=== PATIENT | female | born 1975 | race Caucasian/White ===

== ENCOUNTER 2023-07-05 11:24 | Outpatient (REF) | payer OTHER, SELFPAY ==
--- NOTE | ~2023-07-05 | XR_ITS ---
EXAMINATION: XR CERVICAL SPINE CLINICAL INFORMATION: Acquired absence of other organs. COMPARISON: Portions of the MRI cervical spine dated 04/13/2022. TECHNIQUE: AP and lateral (neutral, flexion and extension) views of the cervical spine were obtained. FINDINGS: Vertebral body heights are normal. At C5-C6, there is moderately severe disc space narrowing, a 2 mm retrolisthesis and mild anterior spondylosis. There has been a prior anterior fusion extending from C6 through T1, with intact C7 corpectomy cage. No hardware failure or loosening is seen. There is no instability with flexion or extension. The posterior elements are intact. The dens is intact. No prevertebral soft tissue swelling or gas is seen. XR/XR cervical spine 4V IMPRESSION: 1. There is intact orthopedic hardware related to a prior C6 through T1 anterior fusion and C7 corpectomy. 2. There is no instability with flexion or extension. 3. There is moderately severe degenerative disc disease at C5-C6.
== END 2023-07-05 11:25 | disposition home or self-care (01) ==
LOC: HO.HOSX 11:24
PROVIDERS: PCP Internal Medicine; Visit Provider Neurological Surgery
DX: Z96.698 Presence of other orthopedic joint implants (principal); Z90.89 Acquired absence of other organs
CPT/HCPCS: 72050

== ENCOUNTER 2023-07-05 11:24 | Outpatient (AMB) | payer OTHER, SELFPAY ==
--- NOTE | 2023-07-05 11:51 | A.OFFVIS_ITS ---
Intake Intake Visit Reasons: neck pain Steel Detailer Required: No Assessment & Plan Assessment & Plan (1) History of cervical corpectomy: Code(s): Z90.89 - Acquired absence of other organs Plan: Dear colleague, on 07/05/2023, I saw for final follow-up Maddie Jerez, whom underwent a C7 corpectomy in July 2022 for spinal cord compression. She recovered well. She denies neck pain or neurological deficits. Today's x-ray shows a stable construct. I discharged her from further follow-up. Thank you for letting me take care of your patient. Severino Alonso MD, PhD Spine Fellowship Trained Neurosurgeon Director, [facility] Orders: Orders XR cervical spine 4V Today Z90.89 - Acquired absence of other organs Coding Level of Care Code Est Pt Level 2 (46094) Diagnoses History of cervical corpectomy Z90.89
== END 2023-07-05 12:25 | disposition home or self-care (01) ==
PROVIDERS: PCP Internal Medicine; Visit Provider Neurological Surgery
DX: Z90.89 Acquired absence of other organs (principal)
CPT/HCPCS: 99212

== ENCOUNTER 2024-09-13 08:45 | Outpatient (AMB) | payer OTHER, SELFPAY ==
--- NOTE | 2024-09-13 08:47 | A.OFFVIS_ITS ---
Vital Signs 09/13/24 08:49 Height 5 ft 5 in Weight 132 lb 11.492 oz BMI 22.1 BP 119/72 Blood Pressure Location Rt brachial Position Sitting Pulse 73 Intake Visit Reasons: Colonoscopy Screening Intake Note: Maddie presents as a new patient for colonoscopy screening. CC: Patient denies having any GI symptoms or concerns today. She has family history of stomach cancer. Supervisor Braiding Required: Yes Supervisor Braiding Language: Turkish Supervisor Braiding Name: daughter Accompanied by: Daughter Allergies No Known Drug Allergies Allergy (Unknown, Verified 09/13/24 08:54) none HPI HPI Colonoscopy Screening: Details: 49-year-old female here for preprocedural meeting to discuss a screening colonoscopy. She is referred by Glen L[facility]y of [facility]. PMX Asthma Allergic rhinitis Latent TB - s/p INH therapy Cervical degenerative disc disease * SURGICAL HISTORY Anterior cervical fusion C6-T1 Left breast biopsy Tubal ligation * ALLERGIES: NKDA * [employer]: None in our system no current labs since my PCP TODAY'S VISIT Turkish # daughter translates per patient request This is her first colonoscopy. She has GERD and lack of appetite with occasional epigastric pain, No bowel prob lems and no alarm sx but she has a FHX of stomach cancer. She has never had an H pylori test. No prior problems with anesthesia or sedation Her asthma is well controlled and she denies cardiac problems. Her TB is s/p INH tx no other ID problems She has a strong FHX of stomach cancer in mother and many relatives but no known CRC or polyps. [facility] Surgical History History of cervical corpectomy History of fusion of cervical spine H/O left breast biopsy H/O tubal ligation Family History Father Asthma Diabetes Maternal Grandfather Coronary artery disease Stomach cancer Mother Stomach cancer Diabetes Maternal Grandmother Coronary artery disease Family/Other Cancer Social History Alcohol intake: current Comment: 1 cup of wine with dinner on occasion Patient Tobacco Use Status: Never used Tobacco Use of substances other than those prescribed or required for medical reasons: No Review of Systems Const Denies fatigue, Denies fever(s), Denies night sweats, Denies poor appetite and Denies weight loss Eyes Details: glasses Reports requires corrective lenses ENT Reports Normal hearing present, Denies dental pain, Denies dysphagia, Denies hearing loss, Denies mouth pain, Denies odynophagia, Denies throat swelling, Denies tongue swelling and Reports other (Dentition adequate) GI Details: Denies abdominal pain, Denies melena, Denies bloating, Denies hematochezia, Denies constipation, Denies GI cramping, Denies dysphagia, Denies excessive flatus, Denies early satiety, Denies heartburn, Denies diarrhea, Denies nausea, Denies odynophagia, Denies vomiting and Denies hematemesis Skin/Breast Denies pruritus, Denies lesions, Denies rash and Denies jaundice Neuro Reports Normal hearing present and Denies Abnormal speech present Endo Denies fatigue Aller/Immun Denies throat swelling and Denies tongue swelling Physical Exam Vital Signs: Last Vital Signs Pulse 73 09/13/24 08:49 BP 119/72 09/13/24 08:49 BMI result Body Mass Index 22.1 Const General: cooperative, no acute distress, well developed and well groomed Nutritional Appearance: average body habitus and well nourished Orientation/consciousness: oriented to person, oriented to place and oriented to time Limitations: language barrier HEENT Head: Yes normocephalic and Yes atraumatic Eyes General: appearance normal, both eyes and all related structures Pupils: Equal, round and reactive pupils present Neck Neck: Yes normal visual inspection and Yes no lymphadenopathy Thyroid: Thyroid normal Resp Effort & Inspection: normal respiratory effort and able to speak in complete sentences Auscultation: clear to auscultation bilaterally Cardio Rate: regular rate Rhythm: regular rhythm Heart sounds: Normal, physiologic split S2 sound present Peripheral pulses: radial pulses present and posterior tibial pulses present GI Inspection: No distended, No Abdominal panniculus present and Yes striae Palpation (GI): Soft to palpation, nontender, no guarding, not rigid and No hepatosplenomegaly present Percussion: Yes normal to percussion Auscultation: normal bowel sounds Rectal Exam - Female: deferred Skin General skin exam: no rashes or lesions noted, turgor normal, skin not dry, no jaundice, No spider nevi and no striae Rashes: no rashes Nails: normal Neuro General: oriented to person, oriented to place and oriented to time Cranial nerves: Yes Equal, round and reactive pupils present and Yes Normal hearing present Speech: No Abnormal speech present Extrem General: Yes normal to inspection, No clubbing, No cyanosis and No edema Psych Appearance: grossly normal and well kempt Mental Status: mental status grossly normal Speech and movement: Normal speech and movement present Affect: normal affect Attitude: cooperative Thought process: Normal thought process present and not confabulating Thought content: Normal thought content present Insight: Good insight present (Psych) Judgement: Good judgement present (Psych) Assessment & Plan Assessment & Plan (1) Pre-op examination: Code(s): Z01.818 - Encounter for other preprocedural examination Category: Medical (2) Family history of stomach cancer: Comment: mother and brothers Code(s): Z80.0 - Family history of malignant neoplasm of digestive organs Category: Medical (3) Poor appetite: Code(s): R63.0 - Anorexia Category: Medical Plan Turkish # daughter translates per patient request This is her first colonoscopy. She has GERD and lack of appetite with occasional epigastric pain, No bowel problems and no alarm sx but she has a FHX of stomach cancer. She has never had an H pylori test. No prior problems with anesthesia or sedation Her asthma is well controlled and she denies cardiac problems. Her TB is s/p INH tx no other ID problems She has a strong FHX of stomach cancer in mother and many relatives but no known CRC or polyps. Orders: Orders Comprehensive Met. Panel Today R63.0 - Anorexia, Z01.818 - Encounter for other preprocedural examination, Z80.0 - Family history of malignant neoplasm of digestive organs Complete Blood Count Auto Diff Today R63.0 - Anorexia, Z01.818 - Encounter for other preprocedural examination, Z80.0 - Family history of malignant neoplasm of digestive organs EGD/[place] Combo - GI Use Only Today R63.0 - Anorexia, Z01.818 - Encounter for other preprocedural examination, Z80.0 - Family history of malignant neoplasm of digestive organs Medications: New peg 3350-electrolytes 236-22.74-6.74 -5.86 gram (Golytely) until fecal effluent is clear; do not exceed a total volume of 2,000 mL 240 mL PO Q10M 4,000 mL 0RF 1 day Z12.11 - Encounter for screening for malignant neoplasm of colon Coding Level of Care Code New Pt Level 3 (36268) Diagnoses Pre-op examination Z01.818 Family history of stomach cancer Z80.0 Poor appetite R63.0
[2024-09-13 08:49] VITALS: BP 119/72; PULSE 73; BMI 22.1
--- OUTSIDE RECORDS SUMMARY | 2024-09-13 08:53 | XMS_ITS ---
[facility] Address [address] [place] [address] Care Team Providers Care Net Developer Architect Name Role Phone Glen Noel MD Primary Care Provider UnavaDora Finney Unavailable [phone] Black, Liss Unavailable [phone] Allergies No Known Allergies REASON FOR VISIT Open sore - Toe Social History Tobacco Use: Social History Observation Description Date Details (start date - stop date) Never Smoker NA - NA Tobacco Use/Smoking Question Answer Notes Are you a: nonsmoker Additional Findings: Tobacco Non-User Current no n-smoker Alcohol Screen Question Answer Notes Did you have a drink containing alcohol in the p ast year? Yes Points 0 Interpretation Negative Tobacco use other than smoking: Question Answer Notes Are you an other tobacco user? No Problems Problem Type SNOMED Code ICD Code Onset Dates Problem Status W/U Status Risk Notes Problem Ulcer of toe of left foot (disorder) (87111780349 913439) Skin ulcer of toe of left foot, limited to breakdown of skin (L97.521) Active confirmed Problem Ulcer of toe of right foot (disorder) (57228568977 099925) Skin ulcer of toe of right foot, limited to breakdown of skin (L97.511) Active confirmed Vital Signs Height 5 ft 5 in in 11/21/2023 Weight 130 lbs 11/21/2023 BMI 21.63 kg/m2 11/21/2023 Procedures Procedure Date Ordered Date Performed Result Body Sit e 45605- Debride <25 sq cm 11/21/2023 N/A Encounters Encounter Location Date Provider Diagnosis [facility] [address] [address] 11/21/2023 Liss Saldana Skin ulcer of toe of left foot, limited to breakdown of skin L97.521 Assessments Encounter Date Diagnosis (ICD Code) Assessment Notes Treatment Notes Treatment Clinical Notes Section Notes 11/21/2023 Skin ulcer of toe of left foot, limited to breakdown of skin (ICD-10 - L97.521) Nonapplicable Patient Educated with: WOUND CARE INSTRUCTIONS.p df (WOUND CARE INSTRUCTIONS.p df) 11/21/2023 Other Plan Of Treatment Treatment Notes Assessment Notes Skin ulcer of toe of left fo ot, limited to breakdown of skin Patient Educated with: WOUND CARE INSTRUCTIONS.pdf (WOUND CARE INSTRUCTIONS.pdf) Pending Test Test Name Order Date 35550- Debride <25 sq cm 11/21/2023 Next Appt Details Follow Up: prn, Reason: Procedure Notes * Category Sub-Category Detail Notes Debride skin< 25 sq cm Open wound Physician of record performed open wound selective debridement of first 25 sq cm or less, of devitilized necrotic/nonviable soft tissue, fibrin, and exudate extending from the epidermis through the dermis, utilizing sharp dissection with sterile 15 blade, and/or tissue nippers. Sterile antibiotic dressing applied, ANESTHESIA- was accomplished TOPICALLY with Lidocaine Hydrochloride Jelly 2 percent. Hemostasis was achieved through direct pressure. Post debridement measurements: 10 mm x 6 mm x 2 mm. Character of the wound post debridement is stable (58436) Progress Notes * Maddie WARREN HDOB:1974 (48 yo F)Acc No.[id number]:11/21/2023 Progress Notes Patient:?Maddie Warren H Provider:?Liss Saldana DPM :1975???Age:48 Y???Sex:Female D ate:11/21/2023 Address:[address] [place] [address] Pcp:Glen Noel MD Subjective: * Chief Complaints: * ???Open sore - Toe * HPI: ???Skin problems:?Treatments:?Topical abx.? * Medical History:? * Surgical History:?cervic sawyer surendra May 2021 * Hospitalization/Major Diagno stic Procedure:?No Hospitalization History. * Family History:?Mother: joel salter, diabetes, cancer.?Father: alive, arthritis, foot problems.? * Social History:?Tobacco Use:?Tobacco Use/Smoking?Are you a:?nonsmoker ?Additional Findings: Tobacco Non-User?Current non-smoker ?Tobacco use other than smoking?Are you an other tobacco user??No ???Drugs/Alcohol:?Drugs?Have you used drugs other than those for medical reasons in the past 12 months??No ?Alcohol Screen?Did you have a drink containing alcohol in the past year??Yes ?Points?0 ?Interpretation?Negative ???Miscellaneous:?no Caffeine. ?Children: yes, 2. ?Exercise: yes, walking, arm exercise. ?Marital status: . ?Occupation: House keeper. * Medications:?None * Allergies:?N.K.D.A.yes[Aller gies Verified] Objective: * Vitals:?Ht: 5 ft 5 in, Wt: 1 30, BMI:21.63, Shoe size: 8. * Examination: ???Dermatologic: ?ULCER:? LOCATION,TA, Medial, SIZE, 8mm X 4mm X 2mm, BASE, granular, RIM, hyperkeratotic, UNDERMINING, absent, TRACKING, Full thickness breakdown of skin, DRAINAGE, serosanguineous, mild, NECROTIC TISSUE, loosely-adherent, yellow slough, MALODOR, absent, CALOR, absent, ERYTHEMA, absent, PAIN ON PALPATION, present.? Assessment: * Assessment: 1.?Skin ulcer of toe of left foot, limited to breakdown of skin - L97.521 (Primary), Response to treatment, Nonapplicable? Plan: * Treatment: * Procedures:?Debride skin< 25 sq cm:?Open wound?Physician of record performed open wound selective debridement of first 25 sq cm or less, of devitilized necrotic/nonviable soft tissue, fibrin, and exudate extending from the epidermis through the dermis, utilizing sharp dissection with sterile 15 blade, and/or tissue nippers. Sterile antibiotic dressing applied, ANESTHESIA- was accomplished TOPICALLY with Lidocaine Hydrochloride Jelly 2 percent. Hemostasis was achieved through direct pressure. Post debridement measurements: 10 mm x 6 mm x 2 mm. Character of the wound post debridement is stable (70469).? * Procedure Codes:?80027 ACTIV E WOUND CARE/20 CM OR < * Follow Up:?prn * Images: * Sign off status: Completed true * Provider:?Liss Saldana DPM Date:?2023 Generated for Cindy negrete/Stacy/eTransmitting on:?09/13/2024 08:53 AM EDT History and Physical Notes * HPI (History of Present Illness) Category Sub-Category Detail Notes Category Not es Skin problems Treatments: Topical abx Examination Category Sub-Category Detail Notes Category Not es Dermatologic ULCER: LOCATION,TA, Med ial, SIZE, 8mm X 4mm X 2mm, BASE, granular, RIM, hyperkeratotic, UNDERMINING, absent, TRACKING, Full thickness breakdown of skin, DRAINAGE, serosanguineous, mild, NECROTIC TISSUE, loosely-adherent, yellow slough, MALODOR, absent, CALOR, absent, ERYTHEMA, absent, PAIN ON PALPATION, present
--- OUTSIDE RECORDS SUMMARY | 2024-09-13 08:53 | XMS_ITS ---
Author Organization [facility] Address [address] [place] [address] Care Team Providers Care Legal File Clerk Name Role Phone Glen Noel MD Primary Care Provider Dora Carney [phone] REASON FOR VISIT CONTINUOUS PROCESS TANNER ROTARY DRUM PPWK Entered Encounters Encounter Location Date Provider Diagnosis [facility] [address] [place] [address] 09/06/2023 Dora Baeza Plan Of Treatment No Information Progress Notes * Maddie WARREN HDOB:1974 (48 yo F)Acc No.[id number]:09/06/2023 Patient:?Maddie Warren :1975???Age:48 Y???Sex:Female Address:[address] [place] [address], [address] * true * Date:? Generated for Printi ng/Faxing/eTransmitting on:?09/13/2024 08:53 AM EDT
--- OUTSIDE RECORDS SUMMARY | 2024-09-13 08:53 | XMS_ITS ---
[facility] Address [address] [place] [address] Care Team Providers Care Brushing Operator Name Role Phone Glen Noel MD Primary Care Provider UnavaDora Finney Unavailable [phone] Black, Liss Unavailable [phone] Allergies No Known Allergies REASON FOR VISIT Painful Toe(s) Social History Tobacco Use: Social History Observation [...] Problem Status W/U Status Risk Notes Problem Acquired hammer toe of left foot (7728429258244429) Other hammer toe(s) (acquired), left foot (M20.42) Active confirmed Problem Localized, primary osteoarthritis of the ankle and/or foot (370198586) Arthritis of joint of lesser toe, left (M19.072) Active confirmed Vital Signs Height 5 ft 5 in in 11/03/2023 Weight 130 lbs 11/03/2023 BMI 21.63 kg/m2 11/03/2023 Procedures Procedure Date Ordered Date Performed Result Body Sit e 01533-Idudpyue Plate 11/03/2023 N/A Encounters Encounter Location Date [facility] [address] [place] [address] 11/03/2023 Liss Black Pain in left toe(s) M79.675 ; Acquired hallux extensus, left M20.5X2 and Ingrown nail L60.0 Assessments Encounter Date Diagnosis (ICD Code) Assessment Notes Treatment Notes Treatment Clinical Notes Section Notes 11/03/2023 Pain in left toe(s) (ICD-10 - M79.675) 11/03/2023 Acquired hallux extensus, left (ICD-10 - M20.5X2) Acute problem, Uncomplicated (3) 11/03/2023 Ingrown nail (ICD-10 - L60.0) Plan Of Treatment Pending Test Test Name Order Date 74305-Rpixaimh Plate 11/03/2023 Next Appt Details Follow Up: 2 Weeks, Reason: Procedure Notes * Category Sub-Category Detail Notes Nail Avulsion Procedure A fine sterile e levator was placed between the eponychium, nail fold, and nail plate to separate the structures. A sterile nail splitter, and/or sterile 316 blade, was then used to longitudinally section the nail along its entire length through the eponychium to the area under the nail fold. The offending portion of nail was from the nail bed with a rolling action and then removed with a hemostat. No underlying bone was identified. There was minimal bleeding as hemostasis was achieved through the temporary use of either a digital tourniquet or the aforementioned local with epinephrine. A bacitracin sterile dressing was applied. Local wound aftercare instructions were discussed and dispensed. The patient was informed of both conservative and future surgical procedures to prevent recurrence. Tylenol or Motrin was recommended for pain or discomfort (58605) , Pt DEFERS matricectomy Anesthesia 3cc of 1 percent Lid ocaine Plain local anesthesic utilizing aseptic technique Location Medial nail border , TA Progress Notes * Maddie WARREN HDOB:1974 (48 yo F)Acc No.[id number]:11/03/2023 Progress Notes Patient:?Maddie Warren Provider:?Liss Saldana DPM :1975???Age:48 Y???Sex:Female D ate:11/03/2023 Address:[address], [place], [id number] Pcp:Glen Noel MD Subjective: * Chief Complaints: * ???Painful Toe(s) * HPI: ???Toe pain:?Nature:?tenderness.?Location:?Left foot.?Duration:?several weeks.?Course:?worse.?Aggrevated by:?any pressure, shoes.?Treatments:?rest/alter normal daily activity, change in shoes.? * ROS:?General/Constitutional:?Nausea?denies.?Vomiting?denies.?Hunger Thirst?denies.?Loss appetite?denies.?Chills?denies.?Fatigue?denies.?Fever?denies.?Night Sweats?denies.?Unexplained weight loss?denies.?Unexplained weight gain?denies.?HEENTM:?Dentures?denies.?Dizziness?denies.?Glasses/contacts?admits.?Retinopathy?de nies.?Blurred/double vision?denies.?TMJ?denies.?Discharge/drainage?denies.?Implants?denies.?Sore throat?denies.?Dental implants?denies.?Hard of hearing ?denies.?Difficulty chewing/swallowing/speaking?denies.?Nose bleeds?denies.?Sore mouth?denies.?Respiratory:?On Oxygen?denies.?Pneumonia/pleurisy?denies.?Bronchitis?denies.?Emphysema?denies.?C oughing?denies.?Cough blood?denies.?Shortness of breath?denies.?Wheezing?denies.?Cardiovascular:?Pacemaker?denies.?MVP?denies.?WPW?denies.?CHF?denies.?Heart attack?denies.?Septal defect?denies.?Rapid beat?denies.?Chest pain ?denies.?Atrial Fib.?denies.?Murmur/Palpitations?denies.?Gastrointestinal:?Hemorrhoids?denies.?Stomach/Abdominal pain?denies.?Dark blood stool?denies.?Irritable bowel ?denies.?Constipation?denies.?Diarrhea?denies.?Hematology:?Swelling?denies.?Clots?denies.?Varicose Veins?denies.?Bruising?denies.?Bleeding problem?denies.?Genitourinary:?Blood urine?denies.?Frequent/Painfu/urination/bladder control?denies.?Kidney stones?denies.?Infection (UTI)?denies.?Nephropathy?denies.?sex trans dis (STD)?denies.?Prostate?denies.?Musculoskeletal:?Hammertoes?denies.?Bunions?denies.?Back Pain?denies.?Muscle Cramps/ Resting?denies.?Muscle cramps / walking?denies.?Generalized aches and pains?denies.?Weakness?denies.?Integ.:?Lay?denies.?Scars?denies.?Corns/calluses?denies.?Ingrown nails?denies.?Painful nails?denies.?Open Sores?denies.?Rashes?denies.?Neurologic:?Difficulty sleeping?denies.?Brain disorder?denies.?Numbness?denies.?Balance trouble?denies.?Confusion?denies.?Fainting/blackouts?denies.?Tingling?denies.?Tr emors?denies.? * Medical History:? * Surgical History:?cervic sawyer surendra May 2021 * Hospitalization/Major Diagno stic Procedure:?No Hospitalization History. * Family History:?Mother: aliv e, diabetes, cancer.?Father: alive, arthritis, foot problems.? * [...] Objective: * Vitals:?Ht: 5 ft 5 in, Wt:13 0, BMI:21.63, Shoe size: 8, Ht-cm: 165.1 cm, Wt-k.97 kg. * Examination: ???General Examination: ?GENERAL APPEARANCE:?Reveals a pleasant, alert, well nourished, well- developed, well hydrated individual, who demonstrates proper attention to hygiene/body habitus, and is in no acute distress , Pt accompanied by , Female , Daughter , Petroleum Transport Driver/Etl Developer , and/who is physically present in exam room at time of visit.?ORIENTED:?person, place, and time , confused.?Orthopedic: ?MUSCLE STRENGTH:?5/5 all groups in a symmetrical fashion, B/L.?BUNION:?( + ) Hallux extensus b/l , , inflammation present , (+) Pain on palpation with erythema left hallux.?DIGITAL DEFORMITIES:?Digital contracture, PIPJ, 2-5 B/L, incompl-reducible with WB, or to push-up test, no over, nor underlapping.?FOOTWEAR:? shoe gear properties exacerbate patients foot/toe deformity.?Ingrown Nail: ?INSPECTION:?Reveals nail incurvation, pain on palpation, groove hypertrophy , Medial nail border , TA.?Vascular: ?DP PULSES:?3/4, B/L.?PT PULSES:?3/4, B/L.?CAPILLARY FILL TIME:?immediate, all digits, B/L.?SKIN TEMPERTURE GRADIENT OF THE LOWER EXTERMITIES:?normal, warm to cool, proximal to distal, B/L, B/L.?HAIR GROWTH/TEXTURE/ELASTICITY/TURGOR:?normal, B/L.?PIGMENTATION:?normal, B/L.?EDEMA:?absent, B/L.?Neurological: ?SENSORY:?Neurological exam reveals intact sensorium, pain sensation normal, vibration sensation intact, pinprick sensation is normal in the lower extremities, Pt denies, anesthesia, burning, paresthesia, tingling, B/L.?TINEL'S COMPRESSION:?Negative tarsal tunnel, rosy pedis, and medial calcaneal nerves.?Dermatologic: ?SKIN FINDINGS:?Skin exam reveals normal color, texture, elasticity, and turgor. There are no masses, nor excrescences. The interspaces are clear, B/L.? Assessment: * Assessment: 1.?Pain in left toe(s) - M79 .675?2.?Acquired hallux extensus, left - M20.5X2 (Primary), Acute problem, Uncomplicated (3)?3.?Ingrown nail - L60.0? Plan: * Treatment: * Procedures:?Nail Avulsion:?Location?Medial nail border , TA.?Anesthesia?3cc of 1 percent Lidocaine Plain local anesthesic utilizing aseptic technique.?Procedure?A fine sterile elevator was placed between the eponychium, nail fold, and nail plate to separate the structures. A sterile nail splitter, and/or sterile 316 blade, was then used to longitudinally section the nail along its entire length through the eponychium to the area under the nail fold. The offending portion of nail was from the nail bed with a rolling action and then removed with a hemostat. No underlying bone was identified. There was minimal bleeding as hemostasis was achieved through the temporary use of either a digital tourniquet or the aforementioned local with epinephrine. A bacitracin sterile dressing was applied. Local wound aftercare instructions were discussed and dispensed. The patient was informed of both conservative and future surgical procedures to prevent recurrence. Tylenol or Motrin was recommended for pain or discomfort (01683) , Pt DEFERS matricectomy.? * Procedure Codes:?25956 Avuls ion Plate, Modifiers: TA * Preventive Medicine:? ??Counseling:?Discussion:?-03: Office or other outpatient visit for the evaluation and management of a new patient, which required a medically appropriate history and/or examination and LOW level of DECISION MAKING for: 1 STABLE ACUTE UNCOMPLICATED PROBLEM, 2 OR MORE MINOR PROBLEMS, OR 1 STABLE CHRONIC PROBLEM, THAT POSE(S) A LOW RISK FOR MORBIDITY/MORTALITY. The visit on the day of the encounter encompassed interpreting the data and educating the patient as to the nature of their condition, treatment options available according to their individual PMH, meds, allergies, and overall health/living conditions, as well as any potential risks or complications that may occur from a failure to adhere to, and participate in, the recommended course of therapy. The discussion included a complete verbal, and/or written explanation of the examination results, any x-rays taken, the proposed diagnosis, and outline of the treatment plan. A schedule for future care needs was also explained. The patient verbalized an understanding of the instructions at this time and agreed to be an active participant in their treatment. If the patient should think of any questions or concerns after the visit, I have encouraged the patient to call the office.?BioMech.:?I discussed the Pts foot biomechanics with them and how it relates to their problem, The patient and I reviewed the types of shoes they should be wearing; my recommendation includes obtaining a shoe with a good firm sole, plenty of toe room, and proper arch support, Recommended Topical analgesics including biofreeze/aspercream/Voltaren gel.? * Follow Up:?2 Weeks * Images: * Sign off status: Completed true * Provider:?Liss Saldana DPM Date:?2023 Generated for Cindy negrete/Stacy/Cristian on:?09/13/2024 08:53 AM EDT History and Physical Notes * HPI (History of Present Illness) Category Sub-Category Detail Notes Category Not es Toe pain Nature: tenderness Location: Left foot Duration: several weeks Course: worse Aggravated by: any pressure, shoes Treatments: rest/alter normal da kristi activity, change in shoes Examination Category Sub-Category Detail Notes Category Not es Ingrown Nail INSPECTION: Reveals nail inc urvation, pain on palpation, groove hypertrophy , Medial nail border , TA Neurological SENSORY: Neurological exa m reveals intact sensorium, pain sensation normal, vibration sensation intact, pinprick sensation is normal in the lower extremities, Pt denies, anesthesia, burning, paresthesia, tingling, B/L TINEL'S COMPRESSION: Negative tarsal [place], rosy pedis, and medial calcaneal nerves Dermatologic SKIN FINDINGS: Skin exam reveal s normal color, texture, elasticity, and turgor. There are no masses, nor excrescences. The interspaces are clear, B/L Orthopedic BUNION: ( + ) Hallux ext ensus b/l , , inflammation present , (+) Pain on palpation with erythema left hallux FOOTWEAR EVALUATION: shoe gear propertie s exacerbate patients foot/toe deformity DIGITAL DEFORMITIES: Digital contracture , PIPJ, 2-5 B/L, incompl-reducible with WB, or to push-up test, no over, nor underlapping MUSCLE STRENGTH: 5/5 all groups in a symmetrical fashion, B/L General Examination GENERAL APPEARANCE: Reveals a pleasant, alert, well nourished, well-developed, well hydrated individual, who demonstrates proper attention to hygiene/body habitus, and is in no acute distress , Pt accompanied by , Female , Daughter , Petroleum Transport Driver/Etl Developer , and/who is physically present in exam room at time of visit ORIENTED: person, place, and t shawn , confused Vascular DP PULSES (B): 3/4, B/L PT PULSES (B): 3/4, B/L CAPILLARY FILL TIME: immediate, all digi ts, B/L TEMPERTURE GRADIENT (C): normal, warm to cool, proximal to distal, B/L, B/L TROPHIC CONDITION-TEXTURE/ELASTICITY/TURGOR/HAIR GROWTH (B): normal, B/L EDEMA (C): absent, B/L PIGMENTATION: normal, B/L
--- OUTSIDE RECORDS SUMMARY | 2024-09-13 08:53 | XMS_ITS | Clinical Summary ---
Author Organization [address] Address [address] [place] [phone] Phone Care Team Providers Care Multigraph Operator Name Role Phone Glen Noel DO Primary Care Provider [phone] Surgical History Surgery Date Site/Laterality Comments TUBAL LIGATION PROCEDURE: HISTORICAL TUBAL LIGATION TUBAL LIGATION PROCEDURE: HISTORICAL TUBAL LIGATION BREAST BIOPSY 2019 Left PROCEDURE: ND BIOPSY BREAST OPEN INCISIONAL; COMMENT: benign OTHER SURGICAL HISTORY 05/25/2022 PROCEDURE: ND ARTHRD ANT INTERDY CERVCL BELW C2 EA ADDL NTRSPC; COMMENT: C7 corpectomy, C6-T1 fusion, Dr. Alonso Medical History Medical History Date Comments Asthma DX:Asthma Rhinitis, allergic DX:Rhinitis, allergic Family History Medical History Relation Name Comments Diabetes Mother Stomach cancer Mother Relation Name Status Comments Father Alive Mother Alive Social History Tobacco Use Types Packs/Day Years Used Date Smoking Tobacco: Never Smokeless Tobacco: Never Alcohol Use Standard Drinks/Week Comments Yes 1 (1 standard drink = 0.6 oz pur e alcohol) Comments Unknown Sex and Gender Information Value Date Recorded Sex Assigned at Not on file Legal Sex Female 4:51 PM EST Gender Identity Not on file Sexual Orientation Not on file Obstetrics History Last Filed Vital Signs Vital Sign Reading Time Taken Comments Blood Pressure - - Pulse - - Temperature - - Respiratory Rate - - Oxygen Saturation - - Inhaled Oxygen Concentration - - Weight 55.3 kg (122 lb) 07/28/2022 12:48 PM EST Height 165.1 cm (5' 5 ) 06/15/2022 11:13 AM EST Body Mass Index 20.3 06/15/2022 11:13 AM EST Plan of Treatment Health Maintenance Due Date Last Done Comments Breast Cancer Screening 1976 Hepatitis B Vaccines (1 of 3 - 19+ 3-dose series) 1995 Pneumococcal Vaccine: Pediatrics (0 to 5 Years) and At-Risk Patients (6 to 64 Years) (1 of 2 - PCV) 1995 Cervical Cancer Screening: P ap Smear 1997 DTaP,Tdap,and Td Vaccines (2 - Td or Tdap) 08/03/2013 08/04/2003 Colorectal Cancer Screening: Colonoscopy 05/04/2022 Depression Screening 05/04/2022 HIV Screening 05/04/2022 Hepatitis C Screening 05/04/2022 Social Influencers of Health Screening 05/04/2022 COVID-19 Vaccine (4 - 2023-2 5 season) 2024 08/13/2021, 10/28/2020, 10/07/2020 Influenza Vaccine (Season Ended) 2025 03/16/2022, 03/08/2010 Cholesterol Screening (Lipid Panel) 08/14/2029 08/14/2024 HIB Vaccines Aged Out No longer eligi ble based on patient's age to complete this topic HPV Vaccines Aged Out No longer eligi ble based on patient's age to complete this topic Hepatitis A Vaccines Aged Out No long er eligible based on patient's age to complete this topic IPV Vaccines Aged Out No longer eligi ble based on patient's age to complete this topic MMR Vaccines Aged Out No longer eligi ble based on patient's age to complete this topic Meningococcal ACWY Vaccine Aged Out N o longer eligible based on patient's age to complete this topic Meningococcal B Vaccine Aged Out No l onger eligible based on patient's age to complete this topic RSV Immunization Patients Under 20 months Aged Out No longer eligible b ased on patient's age to complete this topic Varicella Vaccines Aged Out No longer eligible based on patient's age to complete this topic Procedures Procedure Name Priority Date/Time Associated Diagnosis Comments CBC WITH AUTO DIFFERENTIAL Routine 08/14/2024 1:15 PM EDT Hair loss Routine general medical examination at a health care facility TRIIODOTHYRONINE TOTAL Routine 1:15 PM EDT Hair loss Routine general medical examination at a health care facility THYROXINE FREE Routine 08/14/2024 1:15 PM EDT Hair loss Routine general medical examination at a health care facility HEMOGLOBIN A1C Routine 08/14/2024 1:15 PM EDT Hair loss Routine general medical examination at [facility] facility COMPREHENSIVE METABOLIC PANEL Routine 08/14/2024 1:15 PM EDT Hair loss Routine general medical examination at [facility] facility CBC AND DIFFERENTIAL Routine 08/14/2024 1:15 PM EDT Hair loss Routine general medical examination at [facility] facility THYROID STIMULATING HORMONE Routine 08/14/2024 1:15 PM EDT Hair loss Routine general medical examination at [facility] facility LIPID PANEL WITH REFLEX TO DIRECT LDL Routine 08/14/2024 1:15 PM EDT Hair loss Routine general medical examination at [facility] from Last 3 Months Results * (ABNORMAL) Lipid panel with reflex to direct LDL (08/14/2024 1:15 PM EDT) Cholesterol 196 0 - 200 mg/dL LAB CHE[facility]STR[facility] Triglycerides 162(H) 0 - 150 mg/dL LAB CHEMISTRY METHOD 08/14/2024 3:50 PM [facility] HDL 61 >=40 mg/dL LAB CHEMISTRY METHOD 08/14/2024 3:50 PM [facility] LDL Calculated 103(H) 0 - 100 mg/dL LAB CHEMISTRY METHOD 08/14/2024 3:50 PM [facility] VLDL Cholesterol Stan 32.4 mg/dL LAB CHEMISTRY METHOD 08/14/2024 3:50 PM EDT [facility] Non HDL Chol. (LDL+VLDL) 135 <145 mg/dL LAB CHEMISTRY METHOD 08/14/2024 3:50 PM EDT [facility] Chol/HDL Ratio 3.2 0.0 - 4.4 LAB CHEMISTRY METHOD 08/14/2024 3:50 PM [facility] Blood Venous blood specimen / Unknown Venipuncture / Unknown 08/14/2024 1:15 PM EDT 08/14/2024 1:16 PM EDT Sahara Wright MACHINIST/MACHINE BUILDER LAB BLOOD ORDERABLES Fi nal Result [facility] [address] [place] [address], * (ABNORMAL) CBC auto differential (08/14/2024 1:15 PM EDT) WBC 6.8 4.8 - 10.8 K/mcL LAB HEMETOLOGY METHOD 08/14/2024 3:05 PM EDT [facility] RBC 3.80 3.80 - 4.80 M/mcL LAB HEMETOLOGY METHOD 08/14/2024 3:05 PM EDT [facility] Hemoglobin 12.5 11.5 - 16.0 g/dL LAB HEMETOLOGY METHOD 08/14/2024 3:05 PM EDT [facility] Hematocrit 37.3 35.0 - 47.0 % LAB HEMETOLOGY METHOD 08/14/2024 3:05 PM EDT [facility] MCV 97.9 79.0 - 98.0 FL LAB HEMETOLOGY METHOD 08/14/2024 3:05 PM EDT [facility] MCH 32.8(H) 27.0 - 32.0 pcg LAB HEMETOLOGY METHOD 08/14/2024 3:05 PM EDT [facility] MCHC 33.5 32.0 - 37.0 g/dL LAB HEMETOLOGY METHOD 08/14/2024 3:05 PM EDT [facility] RDW 11.2 11.0 - 15.0 % LAB HEMETOLOGY METHOD 08/14/2024 3:05 PM EDT [facility] Platelets 244 130 - 400 K/mcL LAB HEMETOLOGY METHOD 08/14/2024 3:05 PM [facility] MPV 9.3 7.0 - 11.0 FL LAB HEMETOLOGY METHOD 08/14/2024 3:05 PM [facility] NRBC 0.0 <1.0 % LAB HEMETOLOGY METHOD 08/14/2024 3:05 PM [facility] NRBC Absolute 0.00 <0.10 K/mcL LAB HEMETOLOGY METHOD 08/14/2024 3:05 PM [facility] Neutrophils Relative 54.1 % LAB HEMETOLOGY METHOD 08/14/2024 3:05 PM [facility] Lymphocytes Relative 33.0 % LAB HEMETOLOGY METHOD 08/14/2024 3:05 PM [facility] Monocytes Relative 7.8 % LAB HEMETOLOGY METHOD 08/14/2024 3:05 PM [facility] Eosinophils Relative 4.4 % LAB HEMETOLOGY METHOD 08/14/2024 3:05 PM [facility] Basophils Relative 0.3 % LAB HEMETOLOGY METHOD 08/14/2024 3:05 PM [facility] Immature Granulocytes Relative 0.4 % LAB HEMETOLOGY METHOD 08/14/2024 3:05 PM [facility] Neutrophils Absolute 3.69 1.50 - 7.00 K/mcL LAB HEMETOLOGY METHOD 08/14/2024 3:05 PM [facility] Lymphocytes Absolute 2.25 1.00 - 5.00 K/mcL LAB HEMETOLOGY METHOD 08/14/2024 3:05 PM [facility] Monocytes Absolute 0.53 0.20 - 1.00 K/mcL LAB HEMETOLOGY METHOD 08/14/2024 3:05 PM [facility] Eosinophils Absolute 0.30 0.00 - 0.50 K/[facility] LAB HEMETOLOGY METHOD 08/14/2024 3:05 PM EDT [facility] Basophils Absolute 0.02 0.00 - 0.20 K/[facility] LAB HEMETOLOGY METHOD 08/14/2024 3:05 PM EDT [facility] Immature Granulocytes Absolute 0.03 0.00 - 0.03 K/[facility] HEMETOLOGY METHOD 08/14/2024 3:05 PM EDT [facility] Blood Venous blood specimen / Unknown Venipuncture / Unknown 08/14/2024 1:15 PM EDT 08/14/2024 1:16 PM EDT us Sahara Wright NP LAB BLOOD ORDERABLES Fi nal Result Performing Organization Address City/[facility]/ZIP Co de Phone Number [facility] [address] [place] [address], [place] [phone] * Triiodothyronine total (08/14/2024 1:15 PM EDT) T3, Total 90.29 60.00 - 181.00 ng/dL LAB CHEMISTRY METHOD 08/14/2024 7:56 PM EDT [facility] Blood Venous blood specimen / Unknown Venipuncture / Unknown 08/14/2024 1:15 PM EDT 08/14/2024 1:16 PM EDT us Sahara Wright NP LAB BLOOD ORDERABLES Fi nal Result [facility] [address] [place] [address], [place] [phone] * Thyroid stimulating hormone (08/14/2024 1:15 PM EDT) TSH 2.82 0.40 - 4.00 mcIU/mL LAB CHEMISTRY METHOD 08/14/2024 7:57 PM EDT [facility] Blood Venous blood specimen / Unknown Venipuncture / Unknown 08/14/2024 1:15 PM EDT 08/14/2024 1:16 PM EDT us Sahara Wright NP LAB BLOOD ORDERABLES Fi nal Result Performing Organization Address City/[facility]/ZIP Co de Phone Number [facility] [address] [place] [address], [place] [phone] * Thyroxine free (08/14/2024 1:15 PM EDT) Free T4 1.47 0.70 - 1.80 ng/dL LAB CHEMISTRY METHOD 08/14/2024 7:55 PM EDT [facility] Blood Venous blood specimen / Unknown Venipuncture / Unknown 08/14/2024 1:15 PM EDT 08/14/2024 1:16 PM EDT us Sahara Wright NP LAB BLOOD ORDERABLES Fi nal Result Performing Organization Address [facility]/[place] Co de Phone Number [facility] [address] [place] [address], [place] [phone] * Hemoglobin A1c (08/14/2024 1:15 PM EDT) [facility] Hemoglobin A1C 5.0 <6.5 % LAB CHEMISTRY METHOD 08/14/2024 9:06 PM EDT [facility] Mean Bld Glu Estim. 97 mg/dL LAB CHEMISTRY METHOD 08/14/2024 9:06 PM EDT [facility] Blood Venous blood specimen / Unknown Venipuncture / Unknown 08/14/2024 1:15 PM EDT 08/14/2024 1:16 PM EDT us Sahara Wright NP LAB BLOOD ORDERABLES Fi nal Result [facility] [address] [place] [address], * (ABNORMAL) Comprehensive metabolic panel (08/14/2024 1:15 PM EDT) Sodium 139 133 - 145 mmol/L LAB CHEMISTRY METHOD 08/14/2024 3:50 PM EDT [facility] Potassium 4.1 3.5 - 5.5 mmol/L LAB CHEMISTRY METHOD 08/14/2024 3:50 PM EDT [facility] Chloride 104 96 - 110 mmol/L LAB CHEMISTRY METHOD 08/14/2024 3:50 PM T [facility] CO2 28 21 - 32 mmol/L LAB CHEMISTRY METHOD 08/14/2024 3:50 PM EDT [facility] Anion Gap 7 3 - 11 LAB CHEMISTRY METHOD 08/14/2024 3:50 PM EDT [facility] Glucose 96 70 - 100 mg/dL LAB CHEMISTRY METHOD 08/14/2024 3:50 PM EDT [facility] BUN 20 5 - 25 mg/dL LAB CHEMISTRY METHOD 08/14/2024 3:50 PM [facility] Creatinine 0.59 0.50 - 1.10 mg/dL LAB CHEMISTRY METHOD 08/14/2024 3:50 PM EDT [facility] eGFR 111 >=60 mL/min/1. 73m2 LAB CHEMISTRY METHOD 08/14/2024 3:50 PM EDT [facility] Comment:Calculation based on the??Chronic Kidney Disease Epidemiology Collaboration (CKD-EPI) equation refit??without adjustment for race. BUN/Creatinine Ratio 33.9 LAB CHEMISTRY METHOD 08/14/2024 3:50 PM T [facility] Calcium 9.3 8.5 - 10.5 mg/dL LAB CHEMISTRY METHOD 08/14/2024 3:50 PM EDT [facility] AST (SGOT) 10 10 - 42 unit/L LAB CHEMISTRY METHOD 08/14/2024 3:50 PM EDT [facility] ALT (SGPT) 21 10 - 60 unit/L LAB CHEMISTRY METHOD 08/14/2024 3:50 PM EDT [facility] Alkaline Phosphatase 37(L) 42 - 121 unit/L LAB CHEMISTRY METHOD 08/14/2024 3:50 PM EDT [facility] Total Protein 7.1 6.0 - 8.0 g/dL LAB CHEMISTRY METHOD 08/14/2024 3:50 PM EDT [facility] Albumin 3.7 3.2 - 5.0 g/dL LAB CHEMISTRY METHOD 08/14/2024 3:50 PM EDT [facility] Total Bilirubin 0.4 0.0 - 1.4 mg/dL LAB CHEMISTRY METHOD 08/14/2024 3:50 PM EDT [facility] Blood Venous blood specimen / Unknown Venipuncture / Unknown 08/14/2024 1:15 PM EDT 08/14/2024 1:16 PM EDT Sahara Wright MACHINIST/MACHINE BUILDER LAB BLOOD ORDERABLES Fi nal Result [facility] [address] [place] [address], from Last 3 Months Insurance [employer] Care Teams Multigraph Operator Relationship Specialty Start Date End Date Glen Noel DO [address] [place] [phone] PCP - General Internal Medicine 11/15/17
--- OUTSIDE RECORDS SUMMARY | 2024-09-13 08:54 | XMS_ITS | Patient Health Record ---
Author Organization [facility] Address [address] [address] Care Team Providers Care Entertainment Dancer Name Role Phone Glen Noel MD Primary Care Provider UnavaDora Finney Unavailable [phone] Black, Liss Unavailable [phone] Allergies No Known Allergies Reason For Referral No Information Social History Tobacco Use: Social History Observation [...] Problem Acquired hammer toe of left foot (4816842387261020) Other hammer toe(s) (acquired), left foot (M20.42) Active confirmed Problem Ulcer of toe of right foot (disorder) (81319190958288664 ) Skin ulcer of toe of right foot, limited to breakdown of skin (L97.511) Active confirmed Problem Localized, primary osteoarthritis of the ankle and/or foot (826762279) Arthritis of joint of lesser toe, left (M19.072) Active confirmed Problem Ulcer of toe of left foot (disorder) (75849413156057381 ) Skin ulcer of toe of left foot, limited to breakdown of skin (L97.521) Active confirmed Vital Signs Height 5 ft 5 in in 11/21/2023 Weight 130 lbs 11/21/2023 BMI 21.63 kg/m2 11/21/2023 Procedures Procedure Date Ordered Date Performed Result Body Sit e 87266-Bsjpczxx Plate 11/03/2023 N/A 35221- Debride <25 sq cm 11/21/2023 N/A Encounters Encounter Location Date Provider [facility] [address] 11/03/2023 Liss Black Pain in left toe(s) M79.675 ; Acquired hallux extensus, left M20.5X2 and Ingrown nail L60.[address] [facility] [address] 11/21/2023 Liss Black Skin ulcer of toe of left foot, limited to breakdown of skin L97.521 Assessments Encounter Date Diagnosis (ICD Code) Assessment Notes Treatment Notes Treatment Clinical Notes Section Notes 11/03/2023 Pain in left toe(s) (ICD-10 - M79.675) 11/03/2023 Acquired hallux extensus, left (ICD-10 - M20.5X2) Acute problem, Uncomplicated (3) 11/21/2023 Skin ulcer of toe of left foot, limited to breakdown of skin (ICD-10 - L97.521) Nonapplicable Patient Educated with: WOUND CARE INSTRUCTIONS.p df (WOUND CARE INSTRUCTIONS.p df) 11/03/2023 Ingrown nail (ICD-10 - L60.0) 11/21/2023 Other Plan Of Treatment Pending Test Test Name Order Date 39069-Tuamcpsy Plate 11/03/2023 34734- Debride <25 sq cm 11/21/2023 Insurance Providers Payer Name Payer Address Payer Phone Subscriber Number Group Number Insured Name Patient Relationship to Insured Coverage Start Date Coverage End Date Nilda Dye [id number] JOSE Negrete [phone] [id number] Maddie David Self - patient is the insured Medical (General) History Medical History History ICD Code asthma Tuberculosis Surgical History Surgery Date(Month/Year) cervic surgery May 2021
== END 2024-09-13 09:22 | disposition home or self-care (01) ==
LOC: HO.HGI 08:45
PROVIDERS: PCP Internal Medicine; Visit Provider Nurse Practitioner
DX: Z01.818 Encounter for other preprocedural examination (principal); Z12.11 Encounter for screening for malignant neoplasm of colon; Z80.0 Family history of malignant neoplasm of digestive organs; R63.0 Anorexia
CPT/HCPCS: S0285

== ENCOUNTER 2024-09-13 08:45 | Outpatient (REF) | payer OTHER, SELFPAY ==
[2024-09-13 09:45] LABS: MANUAL DIFF FLAG NO
--- OUTSIDE RECORDS SUMMARY | 2024-09-13 09:55 | XMS_ITS | Clinical Summary ---
Author Organization [address] Address [address] [place] [phone] Phone Care Team Providers Care Early Childhood Worker Name Role Phone Glen Noel DO Primary Care Provider [phone] Surgical History Surgery Date Site/Laterality Comments TUBAL LIGATION PROCEDURE: HISTORICAL TUBAL LIGATION TUBAL LIGATION PROCEDURE: HISTORICAL TUBAL LIGATION BREAST BIOPSY 2019 Left PROCEDURE: [place] BIOPSY BREAST OPEN INCISIONAL; COMMENT: benign OTHER SURGICAL HISTORY 05/25/2022 PROCEDURE: [place] ARTHRD ANT INTERDY CERVCL BELW C2 EA [...] Hair loss Routine general medical [facility] COMPREHENSIVE METABOLIC PANEL Routine 08/14/2024 1:15 PM EDT Hair loss Routine general medical examination at [facility] CBC AND DIFFERENTIAL Routine 08/14/2024 1:15 PM EDT Hair loss Routine general medical examination at [facility] THYROID STIMULATING HORMONE Routine 08/14/2024 1:15 PM EDT Hair loss Routine general medical examination at [facility] LIPID PANEL WITH REFLEX TO DIRECT LDL Routine 08/14/2024 1:15 PM EDT Hair loss Routine general medical examination at [facility] from Last 3 Months Results * (ABNORMAL) Lipid panel with reflex to direct LDL (08/14/2024 1:15 PM EDT) Cholesterol 196 0 - 200 mg/dL LAB [facility] 162(H) 0 - 150 mg/dL LAB CHEMISTRY METHOD 08/14/2024 3:[address] [facility] HDL 61 >=40 mg/dL LAB CHEMISTRY METHOD 08/14/2024 3:[address] [facility] LDL Calculated 103(H) 0 - 100 mg/dL LAB CHEMISTRY METHOD 08/14/2024 3:[address] [facility] VLDL Cholesterol Stan 32.4 mg/dL LAB CHEMISTRY METHOD 08/14/2024 3:50 PM EDT [facility] Non HDL Chol. (LDL+VLDL) 135 <145 mg/dL LAB CHEMISTRY METHOD 08/14/2024 3:50 PM EDT [facility] Chol/HDL Ratio 3.2 0.0 - 4.4 LAB CHEMISTRY METHOD 08/14/2024 3:[address] [facility] Blood Venous blood specimen / Unknown Venipuncture / Unknown 08/14/2024 1:15 PM EDT 08/14/2024 1:16 PM EDT Sahara Wright GRID CASTING MACHINE OPERATOR HELPER LAB BLOOD ORDERABLES Fi nal Result [facility] [address] [place] [address], * (ABNORMAL) CBC auto differential (08/14/2024 1:15 PM EDT) WBC 6.8 4.8 - 10.8 K/mcL LAB HEMETOLOGY METHOD 08/14/2024 3:05 PM EDT [facility] RBC 3.80 3.80 - 4.80 M/mcL LAB HEMETOLOGY METHOD 08/14/2024 3:05 PM EDT [facility] Hemoglobin 12.5 11.5 - 16.0 g/dL LAB HEMETOLOGY METHOD 08/14/2024 3:05 PM EDT [facility] Hematocrit 37.3 35.0 - 47.0 % LAB HEMETOLOGY METHOD 08/14/2024 3:05 PM EDT [facility] MCV 97.9 79.0 - 98.0 FL LAB HEMETOLOGY METHOD 08/14/2024 3:05 PM EDT [facility] MCH 32.8(H) 27.0 - 32.0 pcg LAB HEMETOLOGY METHOD 08/14/2024 3:05 PM EDT [facility] MCHC 33.5 32.0 - 37.0 g/dL LAB HEMETOLOGY METHOD 08/14/2024 3:05 PM EDT [facility] RDW 11.2 11.0 - 15.0 % LAB HEMETOLOGY METHOD 08/14/2024 3:05 PM EDT [facility] Platelets 244 130 - 400 K/mcL LAB HEMETOLOGY METHOD 08/14/2024 3:[address] [facility] MPV 9.3 7.0 - 11.0 FL LAB HEMETOLOGY METHOD 08/14/2024 3:[address] [facility] NRBC 0.0 <1.0 % LAB HEMETOLOGY METHOD 08/14/2024 3:[address] [facility] NRBC Absolute 0.00 <0.10 K/mcL LAB HEMETOLOGY METHOD 08/14/2024 3:[address] [facility] Neutrophils Relative 54.1 % LAB HEMETOLOGY METHOD 08/14/2024 3:[address] [facility] Lymphocytes Relative 33.0 % LAB HEMETOLOGY METHOD 08/14/2024 3:[address] [facility] Monocytes Relative 7.8 % LAB HEMETOLOGY METHOD 08/14/2024 3:[address] [facility] Eosinophils Relative 4.4 % LAB HEMETOLOGY METHOD 08/14/2024 3:[address] [facility] Basophils Relative 0.3 % LAB HEMETOLOGY METHOD 08/14/2024 3:[address] [facility] Immature Granulocytes Relative 0.4 % LAB HEMETOLOGY METHOD 08/14/2024 3:[address] [facility] Neutrophils Absolute 3.69 1.50 - 7.00 K/mcL LAB HEMETOLOGY METHOD 08/14/2024 3:[address] [facility] Lymphocytes Absolute 2.25 1.00 - 5.00 K/mcL LAB HEMETOLOGY METHOD 08/14/2024 3:[address] [facility] Monocytes Absolute 0.53 0.20 - 1.00 K/mcL LAB HEMETOLOGY METHOD 08/14/2024 3:[address] [facility] Eosinophils Absolute 0.30 0.00 - 0.50 K/[facility] LAB HEMETOLOGY METHOD 08/14/2024 3:05 PM EDT [facility] Basophils Absolute 0.02 0.00 - 0.20 K/[facility] LAB HEMETOLOGY METHOD 08/14/2024 3:05 PM EDT [facility] Immature Granulocytes Absolute 0.03 0.00 - 0.03 K/[facility] LAB HEMETOLOGY METHOD 08/14/2024 3:05 PM EDT [facility] Blood Venous blood specimen / Unknown Venipuncture / Unknown 08/14/2024 1:15 PM EDT 08/14/2024 1:16 PM EDT us Sahara Wright NP LAB BLOOD ORDERABLES Fi nal Result Performing Organization Address City/[facility]/ZIP Co de Phone Number [facility] [address] [place] [address], [place] [phone] * Triiodothyronine total (08/14/2024 1:15 PM EDT) T3, Total 90.29 60.00 - 181.00 ng/dL LAB CHEMISTRY METHOD 08/14/2024 7:56 PM EDT [facility] Blood Venous blood specimen / Unknown Venipuncture / Unknown 08/14/2024 1:15 PM EDT 08/14/2024 1:16 PM EDT us Sahara Wright NP LAB BLOOD ORDERABLES Fi nal Result [facility] [address] [place] [address], [place] [phone] * Thyroid stimulating hormone (08/14/2024 1:15 PM EDT) TSH 2.82 0.40 - 4.00 mcIU/mL LAB CHEMISTRY METHOD 08/14/2024 7:57 PM EDT [facility] Blood Venous blood specimen / Unknown Venipuncture / Unknown 08/14/2024 1:15 PM EDT 08/14/2024 1:16 PM EDT us Sahara Wright NP LAB BLOOD ORDERABLES Fi nal Result Performing Organization Address City/[facility]/ZIP Co de Phone Number [facility] [address] [place] [address], [place] [phone] * Thyroxine free (08/14/2024 1:15 PM EDT) Free T4 1.47 0.70 - 1.80 ng/dL LAB CHEMISTRY METHOD 08/14/2024 7:55 PM EDT [facility] Blood Venous blood specimen / Unknown Venipuncture / Unknown 08/14/2024 1:15 PM EDT 08/14/2024 1:16 PM EDT us Sahraa Wright NP LAB BLOOD ORDERABLES Fi nal Result Performing Organization Address [facility] Co de Phone Number [facility] [address] [place] [address], [place] [phone] * Hemoglobin A1c (08/14/2024 1:15 PM EDT) [facility] Hemoglobin A1C 5.0 <6.5 % LAB CHEMISTRY METHOD 08/14/2024 9:06 PM EDT [facility] Mean Bld Glu Estim. 97 mg/dL LAB CHEMISTRY METHOD 08/14/2024 9:06 PM EDT [facility] Blood Venous blood specimen / Unknown Venipuncture / Unknown 08/14/2024 1:15 PM EDT 08/14/2024 1:16 PM EDT us Sahara Wright NP LAB BLOOD ORDERABLES Fi nal Result [facility] [address] [place] [address], * (ABNORMAL) Comprehensive metabolic panel (08/14/2024 1:15 PM EDT) Sodium 139 133 - 145 mmol/L LAB CHEMISTRY METHOD 08/14/2024 3:50 PM EDT [facility] Potassium 4.1 3.5 - 5.5 mmol/L LAB CHEMISTRY METHOD 08/14/2024 3:50 PM EDT [facility] Chloride 104 96 - 110 mmol/L LAB CHEMISTRY METHOD 08/14/2024 3:50 PM T [facility] CO2 28 21 - 32 mmol/L LAB CHEMISTRY METHOD 08/14/2024 3:50 PM EDT [facility] Anion Gap 7 3 - 11 LAB CHEMISTRY METHOD 08/14/2024 3:50 PM EDT [facility] Glucose 96 70 - 100 mg/dL LAB CHEMISTRY METHOD 08/14/2024 3:50 PM EDT [facility] BUN 20 5 - 25 mg/dL LAB CHEMISTRY METHOD 08/14/2024 3:[address] [facility] Creatinine 0.59 0.50 - 1.10 mg/dL LAB CHEMISTRY METHOD 08/14/2024 3:50 PM EDT [facility] eGFR 111 >=60 mL/min/1. 73m2 LAB CHEMISTRY METHOD 08/14/2024 3:50 PM EDT [facility] Comment:Calculation based on the??Chronic Kidney Disease Epidemiology Collaboration (CKD-EPI) equation refit??without adjustment for race. BUN/Creatinine Ratio 33.9 LAB CHEMISTRY METHOD 08/14/2024 3:50 PM T [facility] Calcium 9.3 8.5 - 10.5 mg/dL LAB CHEMISTRY METHOD 08/14/2024 3:50 PM EDT [facility] AST (SGOT) 10 10 - 42 unit/L LAB CHEMISTRY METHOD 08/14/2024 3:50 PM EDT [facility] ALT (SGPT) 21 10 - 60 unit/L LAB CHEMISTRY METHOD 08/14/2024 3:50 PM EDT [facility] Alkaline Phosphatase 37(L) 42 - 121 unit/L LAB CHEMISTRY METHOD 08/14/2024 3:50 PM EDT [facility] Total Protein 7.1 6.0 - 8.0 g/dL LAB CHEMISTRY METHOD 08/14/2024 3:50 PM EDT [facility] Albumin 3.7 3.2 - 5.0 g/dL LAB CHEMISTRY METHOD 08/14/2024 3:50 PM EDT [facility] Total Bilirubin 0.4 0.0 - 1.4 mg/dL LAB CHEMISTRY METHOD 08/14/2024 3:50 PM EDT [facility] Blood Venous blood specimen / Unknown Venipuncture / Unknown 08/14/2024 1:15 PM EDT 08/14/2024 1:16 PM EDT Sahara Wright GRID CASTING MACHINE OPERATOR HELPER LAB BLOOD ORDERABLES Fi nal Result [facility] [address] [place] [address], from Last 3 Months Insurance [employer] Care Teams Early Childhood Worker Relationship Specialty Start Date End Date Glen Noel DO [address] [place] [phone] PCP - General Internal Medicine 11/15/17
[2024-09-13 10:43] LABS: Basophils Absolute Auto 0.1 X10*3/uL (0.0-0.2); Basophils Percent Auto 0.6 % (0-2); Eosinophils Absolute Auto 0.4 X10*3/uL (0.0-0.4); Eosinophils Percent Auto 4.9 % (0-4); Hematocrit 36.1 % (37.0-47.0); Hemoglobin 12.4 g/dl (12.0-16.0); Imm Gran Abs Auto 0.04 X10*3/uL (0.00-0.03); Imm Gran Pct Auto 0.5 % (0.0-0.4); Lymphocytes Absolute Auto 2.1 X10*3/uL (1.2-4.9); Lymphocytes Percent Auto 27.8 % (20-40); Mean Corpuscular HGB Conc 34.3 g/dl (31.0-35.0); Mean Corpuscular Hemoglobin 32.8 pg (27.0-33.0); Mean Corpuscular Volume 95.5 fL (80.0-98.0); Mean Platelet Volume 9.3 fL (9.4-12.3); Monocytes Absolute Auto 0.6 X10*3/uL (0.1-1.2); Monocytes Percent Auto 7.1 % (2-11); Neutrophils Absolute Auto 4.5 x10*3/uL (2.0-8.3); Neutrophils Percent Auto 59.1 % (45-73); Platelet Count 249 X10*3/uL (160-400); Red Blood Count 3.78 X10*6/uL (4.20-5.50); Red Cell Distribution Width 11.3 % (11.0-16.0); White Blood Count 7.7 X10*3/uL (4.8-10.8)
[2024-09-13 11:22] LABS: Alanine Aminotransferase 18 U/L (0-31); Albumin Level 3.8 g/dL (3.5-5.0); Alkaline Phosphatase 65 U/L (39-117); Anion Gap 8 (12-20); Aspartate Amino Transferase 36 U/L (5-31); Bilirubin Total 0.2 mg/dL (0.0-1.0); Blood Urea Nitrogen 15 mg/dL (9-16); Calcium 8.8 mg/dL (8.4-10.2); Carbon Dioxide 26 mmol/L (22-29); Chloride 108 mmol/L (96-108); Estimated Glomerular Filt Rate > 60; Glucose Random 103 mg/dL (60-115); Potassium 4.2 mmol/L (3.3-5.1); Sodium 138 mmol/L (135-145); Total Protein 6.9 g/dL (6.5-8.0)
== END 2024-09-13 08:46 | disposition home or self-care (01) ==
LOC: HO.LAB 08:45
PROVIDERS: PCP Internal Medicine; Visit Provider Nurse Practitioner
DX: Z01.818 Encounter for other preprocedural examination (principal); R63.0 Anorexia; Z80.0 Family history of malignant neoplasm of digestive organs
CPT/HCPCS: 36415; 80053; 85025

== ENCOUNTER 2025-04-18 14:36 | Outpatient (AMB) | payer BC, SELFPAY ==
--- NOTE | 2025-04-18 14:42 | HO.SPINEOV ---
Intake Visit Reasons: neck pain/left arm/hand weakness Intake Note: Ms. David is here today c/o Neck pain and left arm hand and weakness. Paper Cone Drying Machine Operator Required: No Allergies No Known Drug Allergies Allergy (Unknown, Verified 09/13/24 08:54) none Assessment & Plan Assessment & Plan (1) Cervical radiculopathy at C8: Code(s): M54.12 - Radiculopathy, cervical region Category: Medical Plan: Dear colleague On 04/18/2025, I saw Rut David with a chief complaint of progressive left arm pain, numbness and weakness. The patient is status post C7 corpectomy in July 2022 for cervical myelopathy from which she recovered well. Two weeks ago she suddenly developed pain radiating from the neck down into her left arm and outer 2 fingers. She then developed numbness on the ulnar side and sometimes into the digit 3-5. Finally, she developed weakness with difficulty opening jars. The weakness is progressing. The pain is severe. She was referred to physical therapy but the physical therapy is uncomfortable treating her based on her neurological deficits. In addition, to the radicular symptoms, she had a temporary ptosis of the left eye. On exam, cranial nerves 2-12 are intact. Pupils are equal and reactive to light. Spurling test is positive with radiating pain down her left arm in a C8 distribution. There is C8 hypoesthesia. Finger spreaders and switch cleaner are 3/5. In summary, this patient is suffering from an acute C8 radiculopathy, left side with progressive neurological deficits in the form of sensory loss and progressive weakness. She is status post C7 corpectomy in the past. I ordered a stat MRI of the cervical spine due to the neurological deficits. I will see her as soon as possible as the MRI is done. I recommended to go to the emergency room if further neurological deterioration occurs. I spent 30 minutes in this consult for history physical and discussing plan of care. Severino Alonso MD, PhD Spine Fellowship Trained Neurosurgeon Director, [facility] Orders: Orders MR cervical spine wo/w con Today M54.12 - Radiculopathy, cervical region Coding Level of Care Code Est Pt Level 4 (20295) Diagnoses Cervical radiculopathy at C8 M54.12
--- OUTSIDE RECORDS SUMMARY | 2025-04-18 21:43 | XMS_ITS | Patient Health Record ---
Author Organization [facility] [place] Address [address] [facility] [place] [address] Care Team Providers Care Margarine Churn Operator Name Role Phone Sadie ELIZABETH, Glen Primary Care Provider Dora Carney Unavailable [phone] Allergies No Known Allergies Reason For Referral [...] Problem Acquired hammer toe of left foot (4011347503577977) Other hammer toe(s) (acquired), left foot (M20.42) Active confirmed Problem Ulcer of toe of right foot (disorder) (49224601892756312 ) Skin ulcer of toe of right foot, limited to breakdown of skin (L97.511) Active confirmed Problem Localized, primary osteoarthritis of the ankle and/or foot (859627547) Arthritis of joint of lesser toe, left (M19.072) Active confirmed Problem Ulcer of toe of left foot (disorder) (95663781781470218 ) Skin ulcer of toe of left foot, limited to breakdown of skin (L97.521) Active confirmed Plan Of Treatment Pending Test Test Name Order Date [id number] Plate 11/03/2023 93282- Debride <25 sq cm 11/21/2023 Insurance Providers Payer Name Payer Address Payer Phone Subscriber Number Group Number Insured Name Patient Relationship to Insured Coverage Start Date Coverage End Date Nilda CONNER [address] [place] [phone] [id number] Maddie David Self - patient is the insured Medical (General) History Medical History History ICD Code asthma Tuberculosis Surgical History Surgery Date(Month/Year) cervic surgery May 2021
--- OUTSIDE RECORDS SUMMARY | 2025-04-18 21:43 | XMS_ITS | Clinical Summary ---
Author Organization [address] Address [address] [place] [address] Phone Care Team Providers Care Pillar Worker Name Role Phone Glen Noel DO Primary Care Provider [phone] Surgical History Surgery Date Site/Laterality Comments TUBAL LIGATION PROCEDURE: HISTORICAL TUBAL LIGATION TUBAL LIGATION PROCEDURE: HISTORICAL TUBAL LIGATION BREAST BIOPSY 2019 Left PROCEDURE: [place] BIOPSY BREAST OPEN INCISIONAL; COMMENT: benign OTHER SURGICAL HISTORY 05/25/2022 PROCEDURE: [place] ARTHRD ANT INTERDY CERVCL BELW C2 EA [...] Last Done Comments Breast Cancer Screening 1976 Colorectal Cancer Screening: Colonoscopy 1976 Hepatitis B Vaccines (1 of 3 - 19+ 3-dose series) 1995 Pneumococcal Vaccine: Pediatrics (0 to 5 Years) and At-Risk Patients (6 to 49 Years) (1 of 2 - PCV) 1995 Cervical Cancer Screening: P ap Smear 1997 DTaP,Tdap,and Td Vaccines (2 - Td or Tdap) 08/03/2013 08/04/2003 HIV Screening 05/04/2022 Hepatitis C Screening 05/04/2022 Social Influencers of Health Screening 05/04/2022 Depression Screening 06/05/2024 COVID-19 Vaccine (4 - 2024-2 6 season) 2025 08/13/2021, 10/28/2020, 10/07/2020 Influenza Vaccine (#1) 2025 , 03/08/2010 Cholesterol Screening (Lipid Panel) 08/14/2029 08/14/2024 RSV Immunization Adult Patients (1 - 1-dose 75+ series) 2051 HIB Vaccines Aged Out No longer eligi [...] Procedure Name Priority Date/Time Associated Diagnosis Comments LIPID PANEL WITH REFLEX TO DIRECT LDL Routine 08/14/2024 1:15 PM EDT Hair loss Routine general medical examination at a health care facility from Last 3 Months or Most Recently Relevant to Health Maintenance Results * (ABNORMAL) Lipid panel with reflex to direct LDL (08/14/2024 1:15 PM EDT) Cholesterol 196 0 - 200 mg/dL LAB CHEMISTRY METHOD 08/14/2024 3:50 PM EDT [facility] Triglycerides 162(H) 0 - 150 mg/dL LAB CHEMISTRY METHOD 08/14/2024 3:50 PM EDT [facility] HDL 61 >=40 mg/dL LAB CHEMISTRY METHOD 08/14/2024 3:50 PM EDT [facility] LDL Calculated 103(H) 0 - 100 mg/dL LAB CHEMISTRY METHOD 08/14/2024 3:50 PM EDT [facility] VLDL Cholesterol Stan 32.4 mg/dL LAB CHEMISTRY METHOD 08/14/2024 3:50 PM EDT [facility] Non HDL Chol. (LDL+VLDL) 135 <145 mg/dL LAB CHEMISTRY METHOD 08/14/2024 3:50 PM EDT [facility] Chol/HDL Ratio 3.2 0.0 - 4.4 LAB CHEMISTRY METHOD 08/14/2024 3:50 PM EDT [facility] Blood Venous blood specimen / Unknown Venipuncture / Unknown 08/14/2024 1:15 PM EDT 08/14/2024 1:16 PM EDT us Sahara Wright CARDIAC TECHNOLOGIST LAB BLOOD ORDERABLES Fi nal Result [facility] [address] [place] [address], from Last 3 Months or Most Recently Relevant to Health Maintenance Insurance [employer] Care Teams Pillar Worker Relationship Specialty Start Date End Date Glen Noel DO [address] [place] [phone] PCP - General Internal Medicine 11/15/17
== END 2025-04-18 15:14 | disposition home or self-care (01) ==
LOC: HO.HNS 14:37
PROVIDERS: PCP Internal Medicine; Visit Provider Neurological Surgery
DX: M54.12 Radiculopathy, cervical region (principal)
CPT/HCPCS: 99214

== ENCOUNTER 2025-04-19 11:31 | Outpatient (REF) | payer BC, SELFPAY ==
--- NOTE | ~2025-04-19 | MR_ITS ---
CLINICAL HISTORY: M54.12 - Radiculopathy, cervical region Exam: Unenhanced MRI cervical spine. Comparison: Cervical radiographs 07/05/2023. Findings: There is susceptibility artifact related to anterior fusion plate and corpectomy hardware extending from C6-T1. Otherwise, remaining visualized cervical vertebral body heights, alignment, and signal intensities appear maintained. There is disc desiccation at C5-6. Remaining intervertebral disc heights appear maintained. Signal intensity within the cervical cord appears maintained. Axial images reveal the following: C2-3: No focal disc herniation, spinal or foraminal compromise. C3-4: No focal disc herniation, spinal or foraminal compromise. C4-5: No focal disc herniation, spinal or foraminal compromise. C5-6: Diffuse moderate disc bulging results in [id number] appearing central canal stenoses (9; 17 and 8; 17). There may be mild bilateral foraminal stenoses as well. C6-7: Remote corpectomy. No compromise of the thecal sac or spinal or foraminal stenoses. Impression: 1. Moderate disc bulging at C5-6 with resultant [id number] appearing central canal stenoses and perhaps minimal bilateral foraminal stenoses. This document has been electronically signed by: Santiago Argueta MD on 04/19/2025 13:26:43
--- OUTSIDE RECORDS SUMMARY | 2025-04-19 11:39 | XMS_ITS | Clinical Summary ---
Author Organization [address] Address [address] [place] [address] Phone Care Team Providers Care River Transportation Worker Name Role Phone Glen Noel DO Primary Care Provider [phone] Surgical History Surgery Date Site/Laterality Comments TUBAL [...] LAB CHEMISTRY METHOD 08/14/2024 3:[address] [facility] Triglycerides 162(H) 0 - 150 mg/dL LAB CHEMISTRY METHOD 08/14/2024 3:[address] [facility] HDL 61 >=40 mg/dL LAB CHEMISTRY METHOD 08/14/2024 3:[address] [facility] LDL Calculated 103(H) 0 - 100 mg/dL LAB CHEMISTRY METHOD 08/14/2024 3:[address] [facility] VLDL Cholesterol Stan 32.4 mg/dL LAB CHEMISTRY METHOD 08/14/2024 3:[address] [facility] Non HDL Chol. (LDL+VLDL) 135 <145 mg/dL LAB CHEMISTRY METHOD 08/14/2024 3:[address] [facility] Chol/HDL Ratio 3.2 0.0 - 4.4 LAB CHEMISTRY METHOD 08/14/2024 3:[address] [facility] Blood Venous blood specimen / Unknown Venipuncture / Unknown 08/14/2024 1:15 PM EDT 08/14/2024 1:16 PM EDT us Sahara Wright MANAGER BUSINESS PROCESS LAB BLOOD ORDERABLES Fi nal Result [facility] [address] [place] [address], from Last 3 Months or Most Recently Relevant to Health Maintenance Insurance [employer] Care Teams River Transportation Worker Relationship Specialty Start Date End Date Glen Noel DO [address] [place] [phone] PCP - General Internal Medicine 11/15/17
--- OUTSIDE RECORDS SUMMARY | 2025-04-19 11:40 | XMS_ITS | Patient Health Record ---
Author Organization [facility] [place] Address [address] [facility] [place] [address] Care Team Providers Care Terminologist Name Role Phone Sadie ELIZABETH, Glen Primary Care Provider Dora Carney Unavailable [phone] Allergies No Known Allergies Reason For Referral [...] Problem Acquired hammer toe of left foot (1457775134245385) Other hammer toe(s) (acquired), left foot (M20.42) Active confirmed Problem Ulcer of toe of right foot (disorder) (86758063058267373 ) Skin ulcer of toe of right foot, limited to breakdown of skin (L97.511) Active confirmed Problem Localized, primary osteoarthritis of the ankle and/or foot (298863665) Arthritis of joint of lesser toe, left (M19.072) Active confirmed Problem Ulcer of toe of left foot (disorder) (59112169658753797 ) Skin ulcer of toe of left foot, limited to breakdown of skin (L97.521) Active confirmed Plan Of Treatment Pending Test Test Name Order Date [id number] Plate 11/03/2023 86988- Debride <25 sq cm 11/21/2023 Insurance Providers Payer Name Payer Address Payer Phone Subscriber Number Group Number Insured Name Patient Relationship to Insured Coverage Start Date Coverage End Date Nilda CONNER [address] [place] [phone] [id number] Maddie David Self - patient is the insured Medical (General) History Medical History History ICD Code asthma Tuberculosis Surgical History Surgery Date(Month/Year) cervic surgery May 2021
== END 2025-04-19 11:32 | disposition home or self-care (01) ==
LOC: HO.MRI 11:31
PROVIDERS: PCP Internal Medicine; Visit Provider Neurological Surgery
DX: M54.12 Radiculopathy, cervical region (principal)
CPT/HCPCS: 72141

== ENCOUNTER → 2025-04-19 11:37 | Outpatient (BNV) | payer BC, SELFPAY | PROVIDERS: PCP Internal Medicine; Visit Provider Radiology Diagnostic Radiology | DX: M54.12 Radiculopathy, cervical region (principal); M48.02 Spinal stenosis, cervical region | CPT/HCPCS: 72141 ==

== ENCOUNTER 2025-04-23 12:57 | Outpatient (AMB) | payer BC, SELFPAY ==
--- NOTE | 2025-04-23 12:59 | HO.SPINEOV ---
Intake Visit Reasons: STAT MRI f/u Intake Note: Ms. David is here today to F/u on the results to her STAT MRI. Poultry Boner Required: No Allergies No Known Drug Allergies Allergy (Unknown, Verified 04/23/25 12:59) none Assessment & Plan Assessment & Plan (1) Cervical radiculopathy at C8: Code(s): M54.12 - Radiculopathy, cervical region Category: Medical Plan Dear colleague, On 04/23/2025 I saw for return visit Maddie Jerez after obtaining a stat MRI of the cervical spine. As you know, she developed severe pain radiating down her left arm with weakness in his C8 distribution that started approximately 3 weeks ago. She is status post C7 corpectomy in the past therefore my primary diagnosis was cervical radiculopathy due to nerve root compression. I ordered an MRI of the cervical spine which does not show any nerve compression. Despite self is good news but on the other hand we do not have an explanation for the sudden cervical radiculopathy with weakness. Maybe she suffering from a brachial plexus neuritis. She did have a period of ptosis of the left eye, which can be see an a Pancoast tumor but fortunately that can not be demonstrated on the MRI of the cervical spine. I will order an EMG to see if there is a plexopathy. I spent 15 minutes in his consult to review imaging and discussing plan of care. Severino Alonso MD, PhD Spine Fellowship Trained Neurosurgeon Director, [facility] Orders: Orders NE electromyogram (EMG) Today M54.12 - Radiculopathy, cervical region Coding Level of Care Code Est Pt Level 2 (44962) Diagnoses Cervical radiculopathy at C8 M54.12
--- OUTSIDE RECORDS SUMMARY | 2025-04-24 00:50 | XMS_ITS | Patient Health Record ---
[facility] [place] Address [address] [facility] [place] [address] Care Team Providers Care Remote Medical Coder Name Role Phone Sadie ELIZABETH, Glen Primary Care Provider Dora Carney Unavailable [phone] Allergies No Known Allergies Reason For Referral [...] Problem Acquired hammer toe of left foot (4358069442972399) Other hammer toe(s) (acquired), left foot (M20.42) Active confirmed Problem Ulcer of toe of right foot (disorder) (08460962216694031 ) Skin ulcer of toe of right foot, limited to breakdown of skin (L97.511) Active confirmed Problem Localized, primary osteoarthritis of the ankle and/or foot (427602117) Arthritis of joint of lesser toe, left (M19.072) Active confirmed Problem Ulcer of toe of left foot (disorder) (65515711678224977 ) Skin ulcer of toe of left foot, limited to breakdown of skin (L97.521) Active confirmed Plan Of Treatment Pending Test Test Name Order Date 71873-Umbxmweo Plate 11/03/2023 96334- Debride <25 sq cm 11/21/2023 Insurance Providers Payer Name Payer Address Payer Phone Subscriber Number Group Number Insured Name Patient Relationship to Insured Coverage Start Date Coverage End Date Nilda CONNER [address] JOSE Negrete [phone] [id number] Maddie David Self - patient is the insured Medical (General) History Medical History History ICD Code asthma Tuberculosis Surgical History Surgery Date(Month/Year) cervic surgery May 2021
== END 2025-04-23 13:24 | disposition home or self-care (01) ==
LOC: HO.HNS 12:58
PROVIDERS: PCP Internal Medicine; Visit Provider Neurological Surgery
DX: M54.12 Radiculopathy, cervical region (principal)
CPT/HCPCS: 99212

== ENCOUNTER 2025-05-08 14:07 | Outpatient (REF) | payer BC, SELFPAY ==
--- NOTE | 2025-05-08 14:11 | EMG_ITS ---
Chief complaint: Acute onset of left upper back pain 1 month ago, followed by tingling sensation on left forearm and weakness. Noted to have proximal weakness in left upper extremity, with weakness on left shoulder abduction and elbow extension. Reason for referral: Evaluate for brachial plexopathy Referred by: Dr. Alonso Procedure done: Left upper extremity NCS/EMG Precautions and/or limitations: Previous cervical spine surgery The limb temperature was monitored continuously and remained between 32-36 degrees C during the performance of the NCS. Ulnar motor NCS was performed with moderate elbow flexion between 70-90 degrees, with across-elbow distance of 10 cm. Nerve Conduction Studies Anti Sensory Summary Table ?Stim Site NR Onset (ms) Norm Onset (ms) Peak (ms) Norm Peak (ms) O-P Amp (?V) Norm O-P Amp Site1 Site2 Delta-0 (ms) Dist (cm) Alessandro (m/s) Norm Alessandro (m/s) Left Lat Ante Brach Cutan Anti Sensory (Lat Forearm) Lat Biceps ? 0.5 0.6 7.4 Lat Biceps Lat Forearm 0.5 0.0 Left Med Ante Brach Cutan Anti Sensory (Med Forearm) Elbow ? 0.3 0.4 5.7 Elbow Med Forearm 0.3 0.0 Left Median Anti Sensory (2nd Digit) Wrist ? 2.5 3.3 <3.6 57.4 >10 Wrist 2nd Digit 2.5 14.0 56 Left Radial Anti Sensory (Thumb) Forearm ? 2.1 2.6 <3.1 11.4 Forearm Thumb 2.1 0.0 Left Ulnar Anti Sensory (5th Digit) Wrist ? 2.6 3.3 <3.7 21.8 >15.0 Wrist 5th Digit 2.6 14.0 54 Motor Summary Table ?Stim Site NR Onset (ms) Norm Onset (ms) O-P Amp (mV) Norm O-P Amp iAmp (mV) Amp (1st) (%) Site1 Site2 Delta-0 (ms) Dist (cm) Alessandro (m/s) Norm Alessandro (m/s) Left Median Motor (Abd Poll Brev) Wrist ? 4.0 <3.9 1.7 >4.5 2.2 100.0 Elbow Wrist 3.3 18.5 56 >45 Elbow ? 7.3 1.7 2.1 100.0 Left Ulnar Motor (Abd Dig Minimi) Wrist ? 3.4 <3.0 5.4 >5 6.4 100.0 B Elbow Wrist 3.2 17.5 55 >45 B Elbow ? 6.6 5.5 6.5 101.9 A Elbow B Elbow 1.7 10.0 59 >45 A Elbow ? 8.3 5.4 6.4 100.0 EMG ?Side Muscle Nerve Root Ins Act Fibs Psw Amp Dur Poly Recrt Int Pat Comment Left Biceps Musculocut C5-6 Incr 1+ 1+ Nml Nml 0 Nml Complete Left Deltoid Axillary C5-6 Incr 1+ 1+ Nml Nml 0 Nml Complete Left FlexCarRad Median C6-7 Incr 1+ 1+ Nml Nml 0 Nml Complete Left Triceps Radial C6-7-8 Nml Nml Nml Nml Nml 0 Nml Complete Left Supraspinatus SupraScap C5-6 Nml Nml Nml Nml Nml 0 Nml Complete Left ExtIndicis Radial (Post Int) C7-8 Nml Nml Nml Nml Nml 0 Nml Complete Left 1stDorInt Ulnar C8-T1 Nml Nml Nml Nml Nml 0 Nml Complete Paraspinal EMG ?Side Muscle Nerve Root Ins Act Fibs Psw Comment Left Cervical Upper Rami Nml Nml Nml Left Cervical Mid Rami Nml Nml Nml Left Cervical Lower Rami Nml Nml Nml Left Thoracic Upper Rami Nml Nml Nml FINDINGS: Left median motor nerve showed prolonged distal latency, small amplitude and normal conduction velocity. Left ulnar motor nerve showed prolonged distal latency, normal amplitude and normal conduction velocity. Note that all the sensory nerves tested were within normal. Concentric needle EMG was performed in selected muscles of the left upper extremity, cervical paraspinals and thoracic paraspinals. Study revealed signs of electric abnormalities as shown in the table above. Left deltoids, biceps and FCR showed increased insertional activity, PSWs and fibrillations. No denervation seen on paraspinals. IMPRESSION: On nerve conduction studies, left median and ulnar motor conduction studies were abnormal. But corresponding sensory conduction studies were within normal. The rest of sensory nerves studies all within normal. The needle EMG studies showed increased insertional activity and fibrillations in muscles in the left C5-6 innervated myotomes, spanning cervical nerves including musculo cutaneous (biceps), axillary (deltoid) and median (FCR). No denervation seen on cervical or thoracic paraspinals. In summary, the combination of abnormal motor conduction studies and abnormalities noted on needle EMG points toward a cervical radiculopathy, rather than brachial plexopathy, affecting cervical root levels C5/C6/C7. CLINICAL COMMENT: Parsonage-Davidson syndrome (PTS) or brachial plexitis is a clinical diagnosis, often described as acute onset of severe pain followed by weakness while pain subsides. It does sound like what patient is experiencing. Plexitis affecting the upper trunk of brachial plexus is a possible differential diagnosis for this patient. Thank you for your kind referral. Alice Jameson MD, FIDENCIO Board Certified, [place] [employer] Physical Medicine and Rehabilitation (ABPMR) Board Certified, [place] [employer] of Electrodiagnostic Medicine (ABEM) CODIN [address] [facility]
== END 2025-05-08 14:08 | disposition home or self-care (01) ==
LOC: HO.NEURO 14:07
PROVIDERS: PCP Internal Medicine; Visit Provider Neurological Surgery
DX: M54.12 Radiculopathy, cervical region (principal)
CPT/HCPCS: 95869; 95886; 95887; 95910

== ENCOUNTER → 2025-05-08 14:11 | Outpatient (BNV) | payer BC, SELFPAY | PROVIDERS: PCP Internal Medicine; Visit Provider Physical Medicine & Rehabilitation | DX: G54.5 Neuralgic amyotrophy (principal); M54.12 Radiculopathy, cervical region | CPT/HCPCS: 95886; 95887; 95910 ==

== ENCOUNTER 2025-05-19 11:43 | Day surgery (SDC) | payer BC, SELFPAY ==
--- OUTSIDE RECORDS SUMMARY | 2025-04-23 02:48 | XMS_ITS | Clinical Summary ---
Author Organization [address] Address [address] [place] [address] Phone Care Team Providers Care Insurance Investigator Name Role Phone Glen Noel DO Primary Care Provider [phone] Surgical History Surgery Date Site/Laterality Comments TUBAL LIGATION PROCEDURE: HISTORICAL TUBAL LIGATION TUBAL LIGATION PROCEDURE: HISTORICAL TUBAL LIGATION BREAST BIOPSY 2019 Left PROCEDURE: [place] BIOPSY BREAST OPEN INCISIONAL; COMMENT: benign OTHER SURGICAL HISTORY 05/25/2022 PROCEDURE: [place] ARTHRD ANT INTERDY CERVCL BELW C2 EA [...] LAB CHEMISTRY METHOD 08/14/2024 3:50 PM EDT [facility] Triglycerides 162(H) 0 - 150 mg/dL LAB CHEMISTRY METHOD 08/14/2024 3:50 PM EDT [facility] HDL 61 >=40 mg/dL LAB CHEMISTRY METHOD 08/14/2024 3:50 PM EDT [facility] LDL Calculated 103(H) 0 - 100 mg/dL LAB CHEMISTRY METHOD 08/14/2024 3:50 PM EDT [facility] VLDL Cholesterol Stan 32.4 mg/dL LAB CHEMISTRY METHOD 08/14/2024 3:50 PM EDT [facility] Non HDL Chol. (LDL+VLDL) 135 <145 mg/dL LAB CHEMISTRY METHOD 08/14/2024 3:50 PM EDT [facility] Chol/HDL Ratio 3.2 0.0 - 4.4 LAB CHEMISTRY METHOD 08/14/2024 3:50 PM EDT [facility] Blood Venous blood specimen / Unknown Venipuncture / Unknown 08/14/2024 1:15 PM EDT 08/14/2024 1:16 PM EDT us Sahara Wright CHIPPER OPERATOR LAB BLOOD ORDERABLES Fi nal Result [facility] [address] [place] [address], from Last 3 Months or Most Recently Relevant to Health Maintenance Insurance [employer] Care Teams Insurance Investigator Relationship Specialty Start Date End Date Glen Noel DO [address] [place] [phone] PCP - General Internal Medicine 11/15/17
--- NOTE | 2025-05-14 14:08 | HO.ANESPROP2 ---
Documented by User: Anya Ann NP 05/14/25 14:08 HPI - Anesthesia Eval Consult details Narrative: 49 yr old female for colonoscopy [facility] Active Problems Active Problems: All Active Problems Cervical radiculopathy at C8 (Acute) Family history of stomach cancer (Acute) Poor appetite (Acute) Pre-op examination (Acute) Degenerative disc disease, cervical (Acute) Latent tuberculosis (Acute) Allergic rhinitis (Acute) Asthma (Acute) Family History Family History Father Asthma Diabetes Maternal Grandfather Coronary artery disease Stomach cancer Mother Stomach cancer Diabetes Maternal Grandmother Coronary artery disease Family/Other Cancer Surgical History Surgical History History of cervical corpectomy History of fusion of cervical spine H/O left breast biopsy H/O tubal ligation Social History Social History Alcohol intake: current Comment: 1 cup of wine with dinner on occasion Patient Tobacco Use Status: Never used Tobacco Advance Directives: No Advance Directives Information Provided: Yes Meds Allergies Allergy/AdvReac Type Severity Reaction Status Date / Time No Known Drug Allergies Allergy Unknown none Verified 04/23/25 12:59 Home Medications ?Medication ?Instructions ?Recorded ?Confirmed ?Last Taken ?Type multivitamin 1 tab PO DAILY 09/09/24 Unknown History albuterol sulfate 90 mcg/actuation 2 puff inhalation Q6H PRN 09/13/24 Unknown History aerosol inhaler Documented by User: Milena Galan MD 05/19/25 13:08 [facility] Family History Family History Father Asthma Diabetes Maternal Grandfather Coronary artery disease Stomach cancer Mother Stomach cancer Diabetes Maternal Grandmother Coronary artery disease Family/Other Cancer Family history of problems with anesthesia: No Surgical History Surgical History History of cervical corpectomy History of fusion of cervical spine H/O left breast biopsy H/O tubal ligation History of Problems with Anesthesia: No Social History Social History Alcohol intake: current Comment: 1 cup of wine with dinner on occasion Patient Tobacco Use Status: Never used Tobacco Advance Directives: No Advance Directives Information Provided: Yes Meds Allergies Allergy/AdvReac Type Severity Reaction Status Date / Time No Known Drug Allergies Allergy Unknown none Verified 04/23/25 12:59 Home Medications ?Medication ?Instructions ?Recorded ?Confirmed ?Last Taken ?Type multivitamin 1 tab PO DAILY 09/09/24 Unknown History albuterol sulfate 90 mcg/actuation 2 puff inhalation Q6H PRN 09/13/24 Unknown History aerosol inhaler Exam Airway Mallampati Class: II TM Dist: >3cm Neck ROM: Full Heart: rrr Lungs: cta Assessment and Plan Assessment Anesthesia Assessment: Anesthesia Plan Discussed and Chart Reviewed Final Anesthetic Review Family History of Problems with Anesthesia: No History of Problems with Anesthesia: No NPO: Yes ASA Class: II Final Preanesthetic Review: No Changes in Pt Med Stat, Meds/Allgs Chart Reviewed and Consent Obtained/Reviewed Patient Risk: Low Procedure Risk: Intermediate Anesthetic Plan Anesthetic Plan: MAC: Disposition: Standard PACU
--- NOTE | 2025-05-19 12:59 | MHC.SHP ---
Pre-Procedural Eval Section A - 24 Hr Update-Section A only Date of Service: 05/19/25 Section B - Complete if H&P > 30 days Chief Complaint: screening, epigastric pain Relevant Family History (Specify if Yes): Yes Relevant Social History: None Present Medications: see Short Stay Collaborative assessment Medical History: Significant History (Asthma Allergic rhinitis Latent TB - s/p INH therapy Cervical degenerative disc disease ) History of Previous Operations: Relevant previous surgery/procedure and date(s) (History of cervical corpectomy History of fusion of cervical spine H/O left breast biopsy H/O tubal ligation) Allergies: Allergies Allergy/AdvReac Type Severity Reaction Status Date / Time No Known Drug Allergies Allergy Unknown none Verified 04/23/25 12:59 Review of Systems Sugical H&P ROS: Negative: Constitution, Cardiovascular and Respiratory and Yes, Specify: Gastrointestinal (epigastric pain) Exam Surgical H&P Exam: Normal: Heart, Normal: Lungs, Normal: Extremities and Normal: Abdomen Plan Diagnosis/Plan: Unchanged I have reviewed the history and physical and performed a pertinent physical examination on my patient. No changes have occurred unless specified. Time Spent With Patient Time: Total time managing care of this patient today ____ minutes.
[2025-05-19 13:05] VITALS: BMI 21.2
[2025-05-19 13:15] VITALS: BP 113/69; PULSE 68; RESP 16; TEMP 36.4; O2SAT 98
[2025-05-19] MEDS: Lactated Ringers 1,000 ML 100 ML IVCONT (13:26)
--- NOTE | 2025-05-19 13:46 | HO.OPN-COLON ---
Colonoscopy Operative Note Operative Note Date of Service: 05/19/25 Narrative: FLEXIBLE TRANSORAL UPPER GASTROINTESTINAL ENDOSCOPY WITH BIOPSIES AND COLONOSCOPY TILL CECUM WITH [] Pre-op diagnosis: Colon cancer screening, GERD, decreased appetite, occasional epigastric pain, family history of gastric cancer Post-op diagnosis: Gastritis, gastric polyp, Diverticulosis, hemorrhoids Endoscopist:? Joyce Jernigan MD Anesthesia:?MAC UPPER ENDOSCOPY Consent: Indications for the procedure and potential complications of bleeding, perforation, reaction to medications and missed diagnosis were discussed with the patient and informed consent was obtained. Instrument: Olympus GIF H 190 mid size upper endoscope Monitoring: Vital signs and clinical assessment, continuous EKG monitoring, Pulse oximetry, Carbon Dioxide monitoring and blood pressure monitoring were done throughout the procedure. Procedure: The patient was placed in the left lateral decubitis position and pre-procedure medications were administered and a bite block was placed. The endoscope was inserted into the mouth and advanced under direct vision to the third part of duodenum. A careful inspection was made as the upper endoscope was withdrawn including a retroflexed examination of the proximal stomach; Findings and interventions are described below. Findings: Larynx: Normal Esophagus: GE junction at 36 cms. No esophagitis or Daniels's. Stomach: A 7-8 mm benign appearing polyp in the gastric body at 45 cms along the greater curvature - removed with a cold snare. Moderate diffuse gastric erythema - biopsies were obtained from the gastric body and antrum. Grade 2 flap valve on retroflexed examination of the cardia. Duodenum: Normal bulb and descending duodenum Biopsies were obtained from descending duodenum to check for celiac sprue Intervention: Biopsies as noted above COLONOSCOPY PROCEDURE NOTE Instrument: Olympus PCF H 190 L variable stiffness pediatric colonoscope Monitoring: Vital signs and clinical assessment, intermittent blood pressure monitoring, continuous EKG monitoring, Pulse oximetry and Carbon Dioxide monitoring were done throughout the procedure. Please see anesthesia flowsheet. Colon withdrawl time was 15 minutes. Procedure: The patient was placed in the left lateral decubitis position and pre-procedure medications were administered. After a digital rectal examination of the ano-rectum, the video colonoscope was inserted into the rectum and advanced through the colon to the cecum. The colonoscope was slowly withdrawn in a retrograde panoramic fashion and the colon mucosa was carefully examined including a retroflexed view of the rectum. Findings and interventions are described below. Procedure Difficulty: without difficulty Findings: Terminal Ileum: Not evaluated Cecum: Normal Ascending Colon: Normal Transverse Colon: Normal Descending Colon: Normal Sigmoid Colon: Moderate diverticulosis Rectum: Normal Ano-rectum: Small internal hemorrhoids Colon preparation: Excellent after some irrigation. Zebulon Bowel Preparation Scale Right colon; 2 Transverse colon: 2 Left colon; 2 (0 = Unprepared colon segment with mucosa not seen due to solid stool that cannot be cleared. 1 = Portion of mucosa of the colon segment seen, but other areas of the colon segment not well seen due to staining, residual stool and/or opaque liquid. 2 = Minor amount of residual staining, small fragments of stool and/or opaque liquid, but mucosa of colon segment seen well. 3 = Entire mucosa of colon segment seen well with no residual staining, small fragments of stool or opaque liquid) Impression and Post Procedure Diagnosis: Endoscopy Findings: ESOPHAGUS: Normal STOMACH: Moderate gastritis and benign-appearing gastric polyp DUODENUM: Normal - biopsied to check for celiac sprue Colonoscopy Findings: No polyps were detected Moderate diverticulosis seen in the sigmoid colon Small hemorrhoids on retroflexed exam. Plan: Pt to schedule a FU appointment in the GI clinic with Rani Carter NP, Repeat Colonoscopy in 10 years. A summary of above findings and relevant handouts were given to the patient.
[2025-05-19 14:29] VITALS: BP 105/62; PULSE 82; RESP 16; TEMP 36.3; O2SAT 99
[2025-05-19 14:46] VITALS: BP 113/62; PULSE 63; RESP 19; TEMP 36.3; O2SAT 100
== END 2025-05-19 15:02 | disposition home or self-care (01) ==
PROVIDERS: PCP Internal Medicine; Visit Provider Internal Medicine Gastroenterology
PROC: (CPT 45378; principal; 2025-05-19 13:30)
DX: Z12.11 Encounter for screening for malignant neoplasm of colon (principal); R10.13 Epigastric pain; Z80.0 Family history of malignant neoplasm of digestive organs; R63.0 Anorexia; K21.9 Gastro-esophageal reflux disease without esophagitis; K31.7 Polyp of stomach and duodenum; K57.30 Diverticulosis of large intestine without perforation or abscess without bleeding; K64.8 Other hemorrhoids; K29.70 Gastritis, unspecified, without bleeding; B96.81 Helicobacter pylori [H. pylori] as the cause of diseases classified elsewhere
CPT/HCPCS: 45378; 43239; 43251; 88305; 88313; 88342; J2003; J2704

== ENCOUNTER → 2025-05-19 11:43 | Outpatient (BNV) | payer BC, SELFPAY | PROVIDERS: PCP Internal Medicine; Visit Provider Internal Medicine Gastroenterology | DX: Z12.11 Encounter for screening for malignant neoplasm of colon (principal); K57.30 Diverticulosis of large intestine without perforation or abscess without bleeding; K64.8 Other hemorrhoids; R10.13 Epigastric pain; K31.7 Polyp of stomach and duodenum; K29.70 Gastritis, unspecified, without bleeding | CPT/HCPCS: 43251; 45378 ==